=== PATIENT | male | born 1980 | race Hispanic/Latino ===

== ENCOUNTER 2024-05-28 21:31 | Emergency (ER) | payer SELFPAY ==
[~2024-05-28] VITALS: Ht 180.3 cm; Wt 118.8 kg
[2024-05-28 21:45] VITALS: PULSE 110; RESP 18; TEMP 98
[2024-05-28] MEDS: HYDROCODONE/APAP 5MG-325MG TAB PO ONE (23:01)
[2024-05-28] MEDS: ONDANSETRON HCL 4 MG ORAL DISINTEGRATING TAB PO ONE (23:01)
[2024-05-28] MEDS: IBUPROFEN 200 MG TAB PO ONE (23:01)
[2024-05-29] VITALS: BP 145/89; PULSE 100; RESP 18; TEMP 98; O2SAT 94
== END 2024-05-29 | disposition home or self-care (01) ==
LOC: FSED 21:40
DX: M25.561 Pain in right knee (principal); S76.111A Strain of right quadriceps muscle, fascia and tendon, initial encounter; M22.2X1 Patellofemoral disorders, right knee; W01.0XXA Fall on same level from slipping, tripping and stumbling without subsequent striking against object, initial encounter; Y93.01 Activity, walking, marching and hiking; Y92.89 Other specified places as the place of occurrence of the external cause
CPT/HCPCS: 29530; 73562; 73700; 99284; Q0162